=== PATIENT | male | born 1995 | race Hispanic/Latino ===

== ENCOUNTER 2021-04-17 04:34 | Emergency (ER) | payer OTHER ==
[~2021-04-17] VITALS: Ht 172.7 cm; Wt 72.6 kg
[2021-04-17 07:31] VITALS: BP 117/68
== END 2021-04-17 07:31 | disposition home or self-care (01) ==
LOC: EDH 04:34
DX: U07.1 COVID-19 (principal)
CPT/HCPCS: 87635; 87804 ×2; 99283; C9803